=== PATIENT | female | born 1960 | race African-American/Black ===

== ENCOUNTER 2018-04-26 18:38 | Emergency (ER) | payer MEDICARE, MEDICAID ==
[2018-04-26] MEDS ORDERED: IPRATROPIUM/ALBUTEROL 0.5-2.5 MG/3 ML AMPUL NEB ONE (20:16)
--- NOTE | 2018-04-26 20:17 | ER Document Report ---
ED Medical Screen (RME) - General Chief Complaint: Nausea/Vomiting/Diarrhea Stated Complaint: COUGH Time Seen by Provider: 04/26/18 20:13 Notes: 57 years old female with a history of sarcoidosis, recently diagnosed with strep throat, presents today with fever chills general body aches and pain and cough. TRAVEL OUTSIDE OF THE [place] IN LAST 30 DAYS: No - Related Data Allergies/Adverse Reactions: ciprofloxacin [From Cipro] Allergy (Verified 04/26/18 18:41) ciprofloxacin HCl [From Cipro] Allergy (Verified 04/26/18 18:41) Past Medical History - Past Medical History Cardiac Medical History: Reports: Hx Heart Attack - 2001 Pulmonary Medical History: Reports: Hx COPD Neurological Medical History: Reports: Hx Seizures Psychiatric Medical History: Reports: Hx Bipolar Disorder - Immunizations Hx Diphtheria, Pertussis, Tetanus Vaccination: Yes Physical Exam - Vital signs Vitals: Temp Pulse Resp BP Pulse Ox 98.6 F 103 H 18 144/83 H 94 04/26/18 19:09 04/26/18 19:09 04/26/18 19:09 04/26/18 19:09 04/26/18 19:09 Course - Vital Signs Vital signs: Temp Pulse Resp BP Pulse Ox 98.6 F 103 H 18 144/83 H 94 04/26/18 19:09 04/26/18 19:09 04/26/18 19:09 04/26/18 19:09 04/26/18 19:09 Doctor's Discharge - Discharge Referrals: AMALIA BENAVIDEZ MD [Primary Care Provider] - Follow up as needed
[2018-04-26 21:01] LABS: APPEARANCE,URINE CLEAR; BILIRUBIN,URINE NEGATIVE (NEGATIVE); COLOR,URINE STRAW; GLUCOSE, URINE NEGATIVE (NEGATIVE); KETONES,URINE NEGATIVE (NEGATIVE); LEUKOCYTE ESTERASE,URINE NEGATIVE (NEGATIVE); NITRITE,URINE NEGATIVE (NEGATIVE); PROTEIN,URINE NEGATIVE (NEGATIVE); URINE SPECIFIC GRAVITY 1.006; UROBILINOGEN,URINE NEGATIVE mg/dL (<2.0)
[2018-04-26 21:04] LABS: A TYPE INFLUENZA AG NEGATIVE (NEGATIVE); B INFLUENZA AG NEGATIVE (NEGATIVE)
--- NOTE | 2018-04-26 21:09 | RADIOLOGY REPORT (SQ) ---
EXAM DESCRIPTION: XR CHEST 1 VIEW COMPLETED DATE/TME: 04/26/2018 20:16 CLINICAL HISTORY: 57 years, Female, Cough COMPARISON: None. NUMBER OF VIEWS: 1 TECHNIQUE: Portable chest LIMITATIONS: None. FINDINGS: Heart size is normal. Electronic device projects over the left heart border. Lungs are clear. No pneumothorax IMPRESSION: No acute cardiopulmonary process copyright 2010 [facility]- All Rights Reserved
[2018-04-26 21:21] LABS: ABSOLUTE BASOPHILS # (AUTO) 0.1 10^3/uL (0.0-0.2); ABSOLUTE EOSINOPHILS # (AUTO) 0.2 10^3/uL (0.0-0.6); ABSOLUTE LYMPHOCYTES (AUTO) 4.4 10^3/uL (0.5-4.7); ABSOLUTE MONOCYTES (AUTO) 0.7 10^3/uL (0.1-1.4); ABSOLUTE NEUT (AUTO) 2.6 10^3/uL (1.7-8.2); HEMOGLOBIN 13.8 g/dL (12.0-15.5); LYMPHOCYTES % (AUTO) 56.1 % (13-45); MEAN CORPUSCULAR HEMOGLOBIN 29.3 pg (27.0-33.4); MEAN CORPUSCULAR HGB CONC 32.8 g/dL (32.0-36.0); MEAN CORPUSCULAR VOLUME 89 fl (80-97); MONOCYTES % (AUTO) 8.4 % (3-13); PLATELET COUNT 404 10^3/uL (150-450); RED BLOOD COUNT 4.72 10^6/uL (3.72-5.28); RED CELL DISTRIBUTION WIDTH 15.2 % (11.5-14.0); SEGMENTED NEUTROPHILS % (AUTO) 32.5 % (42-78); TOTAL CELLS COUNTED % (AUTO) 100 %; WHITE BLOOD COUNT 7.9 10^3/uL (4.0-10.5)
[2018-04-26 22:17] LABS: ALANINE AMINOTRANSFERASE 7 U/L (9-52); ALBUMIN 5.3 g/dL (3.5-5.0); ALKALINE PHOSPHATASE 57 U/L (38-126); ANION GAP 14 (5-19); ASPARTATE AMINO TRANSFERASE 20 U/L (14-36); BILIRUBIN,DIRECT 0.4 mg/dL (0.0-0.4); BILIRUBIN,TOTAL 0.5 mg/dL (0.2-1.3); BLOOD UREA NITROGEN 6 mg/dL (7-20); CALCIUM 9.9 mg/dL (8.4-10.2); CARBON DIOXIDE 27 mmol/L (22-30); CHLORIDE 98 mmol/L (98-107); GLUCOSE 111 mg/dL (75-110); SODIUM 138.9 mmol/L (137-145)
[2018-04-26] MEDS ORDERED: PREDNISONE 20 MG TABLET PO ONE (22:40)
--- NOTE | 2018-04-26 22:45 | ER Document Report ---
ED General - General TRAVEL OUTSIDE OF THE [place] IN LAST 30 DAYS: No <DORIS CARRILLO - Last Filed: 04/27/18 01:46> <MERA HINES - Last Filed: 04/29/18 08:34> - General Chief Complaint: Cold Symptoms Stated Complaint: COUGH Time Seen by Provider: 04/26/18 20:13 Notes: Patient is a 57-year-old female presents to the emergency department complaining of generalized sore throat, body aches, chills, cough, congestion. Patient states on Tuesday she was to her primary care provider who diagnosed her with strep throat and started her on penicillin. Patient states she has had increased cough for the last couple of days which is why she presents to the emergency room. Patient denies any nausea, vomiting, diarrhea, recent fevers. Past medical history: Sarcoidosis, myocardial infarction, CVA, hypertension Medications: Gabapentin, Dilaudid, clonidine, Seroquel, Xanax Allergies: Cipro Patient has no residual weakness from her CVA. (DORIS CARRILLO) - Related Data Allergies/Adverse Reactions: ciprofloxacin [From Cipro] Allergy (Verified 04/26/18 18:41) ciprofloxacin HCl [From Cipro] Allergy (Verified 04/26/18 18:41) Past Medical History - General Information source: Patient - Social History Smoking Status: Never Smoker Family History: Reviewed & Not Pertinent Patient has suicidal ideation: No Patient has homicidal ideation: No - Past Medical History Cardiac Medical History: Reports: Hx Heart Attack - 2001 Pulmonary Medical History: Reports: Hx COPD Neurological Medical History: Reports: Hx Seizures Renal/ Medical History: Denies: Hx Peritoneal Dialysis Psychiatric Medical History: Reports: Hx Bipolar Disorder Past Surgical History: Reports: Hx Cholecystectomy, Hx Hysterectomy - Immunizations Hx Diphtheria, Pertussis, Tetanus Vaccination: Yes <DORIS CARRILLO - Last Filed: 04/27/18 01:46> Review of Systems - Review of Systems Constitutional: See HPI EENT: See HPI Cardiovascular: See HPI Respiratory: See HPI Gastrointestinal: No symptoms reported Genitourinary: No symptoms reported Female Genitourinary: No symptoms reported Musculoskeletal: No symptoms reported Skin: No symptoms reported Hematologic/Lymphatic: No symptoms reported Neurological/Psychological: No symptoms reported <DORIS CARRILLO - Last Filed: 04/27/18 01:46> Physical Exam <DORIS CARRILLO - Last Filed: 04/27/18 01:46> - Vital signs Vitals: Temp Pulse Resp BP Pulse Ox 98.6 F 103 H 18 144/83 H 94 04/26/18 19:09 04/26/18 19:09 04/26/18 19:09 04/26/18 19:09 04/26/18 19:09 - Notes Notes: GENERAL: Alert, interacts well. No acute distress. HEAD: Normocephalic, atraumatic. No frontal or maxillary sinus noted EYES: Pupils equal, round, and reactive to light. Extraocular movements intact. ENT: Oral mucosa moist, tongue midline. Nares patent, swollen turbinates bilaterally, TM's intact, nonerythematous, nonbulging. Pharynx erythematous, tonsils +2 bilaterally with no exudate noted. NECK: Full range of motion. Supple. Trachea midline. No lymphadenopathy appreciated LUNGS: Clear to auscultation bilaterally, no wheezes, rales, or rhonchi. No respiratory distress. HEART: Regular rate and rhythm. No murmur ABDOMEN: Soft, non-tender. Non-distended. Bowel sounds present in all 4 quadrants. EXTREMITIES: Moves all 4 extremities spontaneously. No edema, normal radial and dorsalis pedis pulses bilaterally. No cyanosis. 5 out of 5 strength all 4 extremities BACK: no cervical, thoracic, lumbar midline tenderness. No saddle anesthesia, normal distal neurovascular exam. NEUROLOGICAL: Alert and oriented x3. Normal speech. cranial nerves II through XII grossly intact PSYCH: Normal affect, normal mood. SKIN: Warm, dry, normal turgor. No rashes or lesions noted. (DORIS CARRILLO) Course - Laboratory Result Diagrams: 04/26/18 20:55 04/26/18 20:55 <DORIS CARRILLO - Last Filed: 04/27/18 01:46> - Laboratory Result Diagrams: 04/26/18 20:55 04/26/18 20:55 <MERA HINES - Last Filed: 04/29/18 08:34> - Re-evaluation Re-evalutation: 04/26/18 22:43 Patient's labs show no signs of leukocytosis, no signs of anemia, no signs of urinary tract infection, no signs of dehydration, her flu test was negative and her chest x-ray shows no signs of pneumonia, pneumothorax, rib fractures. RME provider did give the patient a DuoNeb treatment which she solids helped her breathing. Patient's lung sounds are clear and equal in all patterson now, RME provider did not document her lung sounds sounded like initially but I am going to send her home with albuterol and steroids for bronchitis. Discussed continuing antibiotics prescribed by primary care provider, returning to the emergency room for any other concerning symptoms. Patient appears well- hydrated at this time in no obvious distress. (DORIS CARRILLO) - Vital Signs Vital signs: Temp Pulse Resp BP Pulse Ox 98.0 F 94 20 120/80 95 04/26/18 23:17 04/26/18 23:17 04/26/18 23:17 04/26/18 23:17 04/26/18 23:17 - Laboratory Laboratory results interpreted by me: 04/26/18 04/26/18 20:55 20:55 RDW 15.2 H Seg Neutrophils % 32.5 L Lymphocytes % 56.1 H BUN 6 L Glucose 111 H ALT 7 L Total Protein 9.0 H Albumin 5.3 H Discharge <DORIS CARRILLO - Last Filed: 04/27/18 01:46> <MERA HINES - Last Filed: 04/29/18 08:34> - Discharge Clinical Impression: Bronchitis Upper respiratory infection Qualifiers: URI type: unspecified viral URI Qualified Code(s): J06.9 - Acute upper respiratory infection, unspecified Condition: Stable Disposition: HOME, SELF-CARE Instructions: Bronchitis With Bronchospasm (Wheezing) ([facility]), Upper Respiratory Illness ([facility]) Additional Instructions: As we discussed you have been seen and treated in the emergency department for an upper respiratory infection, and wheezing. Please continue taking antibiotics as prescribed. Please also take medications from the emergency room as prescribed. Please return to the emergency room for any other concerning symptoms and follow-up with your primary care provider in 24 hours. Prescriptions: Benzonatate [Tessalon Perles 100 mg Capsule] 100 mg PO Q8HP PRN #40 capsule PRN Reason: RX: Albuterol Sulfate [Proair HFA Inhalation Aerosol 8.5 gm MDI] 2 puff IH Q4H PRN #1 mdi PRN Reason: Mometasone Furoate [Nasonex] 1 spray NS Q12 #1 spray.pump RX: Prednisone [Deltasone 20 mg Tablet] 3 tab PO DAILY 5 Days tablet Referrals: AMALIA BENAVIDEZ MD [Primary Care Provider] - Follow up as needed Cosign for MLP Consult
[2018-04-26 23:18] VITALS: BP 120/80
== END 2018-04-26 23:20 | disposition home or self-care (01) ==
LOC: ER 18:38
DX: J40 Bronchitis, not specified as acute or chronic (principal); J44.9 Chronic obstructive pulmonary disease, unspecified; R05 Cough; J02.0 Streptococcal pharyngitis; R68.83 Chills (without fever); I10 Essential (primary) hypertension; F31.9 Bipolar disorder, unspecified; Z79.899 Other long term (current) drug therapy; Z79.891 Long term (current) use of opiate analgesic; Z88.1 Allergy status to other antibiotic agents
CPT/HCPCS: 94640; 99283; 36415; 85025; 80053; 81001; 87804; 71045; A9270 ×2; J7512; J7620

== ENCOUNTER 2018-05-08 02:42 | Emergency (ER) | payer MEDICARE, MEDICAID ==
[2018-05-08] MEDS ORDERED: ASPIRIN 81 MG TABLET, CHEWABLE PO ONE (03:03)
[2018-05-08] MEDS ORDERED: IPRATROPIUM/ALBUTEROL 0.5-2.5 MG/3 ML AMPUL NEB ONE ×2 (03:04→06:17)
--- NOTE | 2018-05-08 03:04 | ER Document Report ---
ED General - General Chief Complaint: Chest Pain > 30 Stated Complaint: CHEST PAIN Time Seen by Provider: 05/08/18 02:51 Primary Care Provider: AMALIA BENAVIDEZ MD [Primary Care Provider] - Follow up as needed Mode of Arrival: Ambulatory Information source: Patient Notes: 57-year-old female with COPD, sarcoidosis, coronary artery disease, previous CVA, seizure history, recent diagnosis of pneumonia presents with complaint of chest pain and abdominal pain. Patient states that she has recently completed a course of Augmentin for strep throat and pneumonia. Patient states that she has felt drained, fatigued. Patient has had one episode of vomiting. She reports i ntermittent episodes of diarrhea. Patient receive nitro, aspirin and Zofran prior to arrival. She states that her pain improved after vomiting. TRAVEL OUTSIDE OF THE [place] IN LAST 30 DAYS: No - HPI Onset: Other Onset/Duration: Gradual Quality of pain: Achy, Pressure Severity: Mild Pain Level: 2 Associated symptoms: Chest pain, Nausea, Vomiting - Abdominal pain, Other Exacerbated by: Denies Relieved by: Denies Similar symptoms previously: Yes Recently seen / treated by doctor: Yes - Related Data Allergies/Adverse Reactions: ciprofloxacin [From Cipro] Allergy (Verified 04/26/18 18:41) ciprofloxacin HCl [From Cipro] Allergy (Verified 04/26/18 18:41) Past Medical History - General Information source: Patient, [facility] Records - Social History Smoking Status: Never Smoker Frequency of alcohol use: None Drug Abuse: None Lives with: Family Family History: Reviewed & Not Pertinent - Past Medical History Cardiac Medical History: Reports: Hx Heart Attack - 2001 Pulmonary Medical History: Reports: Hx COPD Neurological Medical History: Reports: Hx Seizures Renal/ Medical History: Denies: Hx Peritoneal Dialysis Psychiatric Medical History: Reports: Hx Bipolar Disorder Past Surgical History: Reports: Hx Cholecystectomy, Hx Hysterectomy - Immunizations Hx Diphtheria, Pertussis, Tetanus Vaccination: Yes Review of Systems - Review of Systems Constitutional: Fever, Malaise, Weakness EENT: denies: Blurred vision Cardiovascular: Chest pain. denies: Dizziness Respiratory: Cough, Short of breath, Wheezing Gastrointestinal: Abdominal pain, Diarrhea Female Genitourinary: No symptoms reported Musculoskeletal: No symptoms reported Skin: No symptoms reported Hematologic/Lymphatic: No symptoms reported Neurological/Psychological: denies: Confusion, Headaches -: Yes All other systems reviewed and negative Physical Exam - Vital signs Vitals: Resp BP Pulse Ox 20 133/81 H 89 L 05/08/18 02:47 05/08/18 02:47 05/08/18 02:47 - Notes Notes: PHYSICAL EXAMINATION: GENERAL: Well-appearing, well-nourished and in no acute distress. HEAD: Atraumatic, normocephalic. EYES: Pupils equal round and reactive to light, extraocular movements intact, conjunctiva are normal. ENT: Nares patent, oropharynx clear without exudates. Moist mucous membranes. NECK: Normal range of motion, supple without lymphadenopathy LUNGS: Diminished breath sounds bilaterally. HEART: Regular rate and rhythm without murmurs ABDOMEN: Soft, nontender, nondistended abdomen. No guarding, no rebound. No masses appreciated. Female : deferred Musculoskeletal: Normal range of motion, no pitting or edema. No cyanosis. NEUROLOGICAL: Cranial nerves grossly intact. Normal speech, normal gait. Normal sensory, motor exams PSYCH: Normal mood, normal affect. SKIN: Warm, Dry, normal turgor, no rashes or lesions noted. Course - Re-evaluation Re-evalutation: 05/10/18 01:23 Laboratory 05/08/18 05/08/18 05/08/18 04:25 04:25 04:25 WBC 6.7 RBC 4.00 Hgb 11.5 L Hct 35.0 L MCV 88 MCH 28.7 MCHC 32.8 RDW 15.0 H Plt Count 272 Seg Neutrophils % 53.6 Lymphocytes % 33.6 Monocytes % 9.1 Eosinophils % 2.4 Basophils % 1.3 Absolute Neutrophils 3.6 Absolute Lymphocytes 2.3 Absolute Monocytes 0.6 Absolute Eosinophils 0.2 Absolute Basophils 0.1 PT INR Sodium 141.9 Potassium 3.3 L Chloride 113 H Carbon Dioxide 23 Anion Gap 6 BUN 5 L Creatinine 0.47 L Est GFR ( Amer) > 60 Est GFR (Non-Af Amer) > 60 Glucose 106 Calcium 7.0 L* Magnesium Total Bilirubin 0.3 Direct Bilirubin 0.3 Neonat Total Bilirubin Not Reportable Neonat Direct Bilirubin Not Reportable Neonat Indirect Bili Not Reportable AST 42 H ALT 28 Alkaline Phosphatase 45 Creatine Kinase 73 CK-MB (CK-2) 0.37 Troponin I < 0.012 Total Protein 5.5 L Albumin 3.0 L Lipase 35.8 05/08/18 05/08/18 05/08/18 04:25 05:53 05:53 WBC RBC Hgb Hct MCV MCH MCHC RDW Plt Count Seg Neutrophils % Lymphocytes % Monocytes % Eosinophils % Basophils % Absolute Neutrophils Absolute Lymphocytes Absolute Monocytes Absolute Eosinophils Absolute Basophils PT 13.3 INR 0.96 Sodium Potassium Chloride Carbon Dioxide Anion Gap BUN Creatinine Est GFR ( Amer) Est GFR (Non-Af Amer) Glucose Calcium Magnesium 1.8 Total Bilirubin Direct Bilirubin Neonat Total Bilirubin Neonat Direct Bilirubin Neonat Indirect Bili AST ALT Alkaline Phosphatase Creatine Kinase CK-MB (CK-2) Troponin I < 0.012 Total Protein Albumin Lipase Abdomen/Pelvis CT 05/08/18 03:03 IMPRESSION: Small bilateral lower lobar pneumonia/atelectasis. Chest X-Ray 05/08/18 03:04 IMPRESSION: Small bilateral lower lobar pneumonia/atelectasis. Temp Pulse Resp BP Pulse Ox 98.9 F 13 139/91 H 100 05/08/18 07:02 05/08/18 07:02 05/08/18 07:02 05/08/18 07:02 57-year-old female presents with complaint of weakness, chest pain, cough, abdominal pain. Vital signs reviewed and within normal limits upon arrival. Patient does not appear toxic she does appear ill. She is mildly dehydrated. Patient did receive breathing treatments, IV fluids, ceftriaxone during her ED course. CBC is without leukocytosis or anemia. CMP shows hypocalcemia. This was replenished.. Cardiac enzymes including delta troponin within normal limits. Patient is not hypoxic, she is not requiring oxygen supplementation. She was treated with Augmentin recently for strep throat but this is an inappropriate antibiotic for community-acquired pneumonia. She has had no recent hospitalizations. She is tolerating p.o. Patient will be discharged home with a course of doxycycline. Patient was evaluated and treated as appropriate for the patient's presenting symptoms and complaint, with consideration of any critical or life threatening conditions that may be associated with their obtained history and exam as noted above. All results were discussed with patient and her family members at the bedside. patient provided the opportunity to ask questions, and express concerns. Patient was educated on treatments based on their presumed diagnosis as noted above. At this time we w ill discharge the patient with return precautions and follow-up recommendations. Verbal discharge instructions given a the bedside. Medication warnings reviewed. Patient is in agreement with this plan and has verbalized understanding of return precautions. After careful consideration I feel that that patient can be safely discharged from the emergency department, they were advised to followup with a primary care physician in 2-3 days. Dictation on this chart was performed using voice recognition software and may result in unintended grammatical, spelling, syntax or errors. - Vital Signs Vital signs: Temp Pulse Resp BP Pulse Ox 98.9 F 13 139/91 H 100 05/08/18 07:02 05/08/18 07:02 05/08/18 07:02 05/08/18 07:02 - Laboratory Result Diagrams: 05/08/18 04:25 05/08/18 04:25 Laboratory results interpreted by me: 05/08/18 05/08/18 04:25 04:25 Hgb 11.5 L Hct 35.0 L RDW 15.0 H Potassium 3.3 L Chloride 113 H BUN 5 L Creatinine 0.47 L Calcium 7.0 L* AST 42 H Total Protein 5.5 L Albumin 3.0 L - Diagnostic Test Radiology reviewed: Image reviewed - EKG Interpretation by Me EKG shows normal: Sinus rhythm Rate: Normal Rhythm: NSR When compared to previous EKG there are: No significant change Discharge - Discharge Clinical Impression: Hypocalcemia Pneumonia Qualifiers: Pneumonia type: due to unspecified organism Laterality: bilateral Lung location: unspecified part of lung Qualified Code(s): J18.9 - Pneumonia, unspecified organism Abdominal pain Qualifiers: Abdominal location: periumbilical Qualified Code(s): R10.33 - Periumbilical pain Nausea & vomiting Qualifiers: Vomiting type: unspecified Vomiting Intractability: non-intractable Qualified Code(s): R11.2 - Nausea with vomiting, unspecified Condition: Good Disposition: HOME, SELF-CARE Instructions: Abdominal Pain ([facility]), Intravenous (IV) Fluids ([facility]), Pneumonia ([facility]), Vomiting ([facility]) Additional Instructions: You have been diagnosed with a pneumonia. It is very important that you take all of your antibiotics until they are gone even if you are feeling better. Please return to the emergency department immediately if you began having worsening shortness of breath, become confused, have worsening pain, pass out, have persistent vomiting that prevents you from being able to drink fluids for more than 12 hours, or have any other symptoms that are worrisome to you. Please follow-up with your primary care doctor in the next 1-2 days. Prescriptions: Guaifenesin/Codeine Phos [Robitussin-AC Syrup 59 ml] 10 ml PO QHS #75 ml Acetaminophen/Chlorpheniramine [Coricidin Cold & Flu Tablet] 1 tab PO ASDIR PRN #1 pkg PRN Reason: RX: Doxycycline Hyclate 100 mg PO BID #14 capsule Forms: Elevated Blood Pressure Referrals: AMALIA BENAVIDEZ MD [Primary Care Provider] - Follow up as needed
[2018-05-08] MEDS ORDERED: FAMOTIDINE INJ/PF 20 MG/2 ML SDV IV ONE (03:16)
[2018-05-08] MEDS ORDERED: NORMAL SALINE 500 ML IV ONE (03:16)
[2018-05-08] MEDS ORDERED: MORPHINE SULFATE 10 MG/ML INJ IV ONE (03:48)
[2018-05-08 04:39] LABS: ABSOLUTE BASOPHILS # (AUTO) 0.1 10^3/uL (0.0-0.2); ABSOLUTE EOSINOPHILS # (AUTO) 0.2 10^3/uL (0.0-0.6); ABSOLUTE LYMPHOCYTES (AUTO) 2.3 10^3/uL (0.5-4.7); ABSOLUTE MONOCYTES (AUTO) 0.6 10^3/uL (0.1-1.4); ABSOLUTE NEUT (AUTO) 3.6 10^3/uL (1.7-8.2); BASOPHILS % (AUTO) 1.3 % (0-2); EOSINOPHILS % (AUTO) 2.4 % (0-6); HEMOGLOBIN 11.5 g/dL (12.0-15.5); LYMPHOCYTES % (AUTO) 33.6 % (13-45); MEAN CORPUSCULAR HEMOGLOBIN 28.7 pg (27.0-33.4); MEAN CORPUSCULAR HGB CONC 32.8 g/dL (32.0-36.0); MEAN CORPUSCULAR VOLUME 88 fl (80-97); MONOCYTES % (AUTO) 9.1 % (3-13); PLATELET COUNT 272 10^3/uL (150-450); SEGMENTED NEUTROPHILS % (AUTO) 53.6 % (42-78); TOTAL CELLS COUNTED % (AUTO) 100 %; WHITE BLOOD COUNT 6.7 10^3/uL (4.0-10.5)
[2018-05-08 04:52] LABS: ALANINE AMINOTRANSFERASE 28 U/L (9-52); ALKALINE PHOSPHATASE 45 U/L (38-126); ASPARTATE AMINO TRANSFERASE 42 U/L (14-36); BILIRUBIN,DIRECT 0.3 mg/dL (0.0-0.4); BILIRUBIN,TOTAL 0.3 mg/dL (0.2-1.3); BLOOD UREA NITROGEN 5 mg/dL (7-20); CREATINE KINASE 73 U/L (30-135); GLUCOSE 106 mg/dL (75-110); LIPASE 35.8 U/L (23-300); POTASSIUM 3.3 mmol/L (3.6-5.0); TOTAL PROTEIN 5.5 g/dL (6.3-8.2)
[2018-05-08 04:57] LABS: ANION GAP 6 (5-19); CARBON DIOXIDE 23 mmol/L (22-30); CHLORIDE 113 mmol/L (98-107); SODIUM 141.9 mmol/L (137-145)
[2018-05-08] MEDS ORDERED: CALCIUM GLUCONATE 1000 MG/10 ML INJ IV ONE (05:03)
[2018-05-08 05:04] LABS: CREATINE KINASE MB 0.37 ng/mL (<4.55)
[2018-05-08 05:09] LABS: TROPONIN I < 0.012 ng/mL
--- NOTE | 2018-05-08 05:44 | RADIOLOGY REPORT (SQ) ---
EXAM DESCRIPTION: CT ABDOMEN PELVIS WITH IV CONTRAST COMPLETED DATE/TME: 05/08/2018 03:03 CLINICAL HISTORY: 57 years Female, abd pain Comparison: None. Technique: IV contrast. Coronal and sagittal reformat. This exam was performed according to our departmental dose-optimization program, which includes automated exposure control, adjustment of the mA and/or kV according to patient size and/or use of iterative reconstruction technique. [facility]: Dose Right [facility]: CareDose [facility]: Dose Right [facility]: Teradose 4D [facility]: zerved LIMITATIONS: None Findings: Small streaky opacity of bilateral lower lobes partially imaged. No ascites. Normal appendix. Cholecystectomy. No pneumoperitoneum. No bowel obstruction. No hydronephrosis or hydroureter. No renal/ureteral stone. No evidence of abdominal aortic aneurysm. Inferior thorax, liver, gallbladder, pancreas, spleen, adrenals, renal system, gastrointestinal tract, pelvic organs, lymphatics, vasculature, and musculoskeleton appear otherwise unremarkable. IMPRESSION: Small bilateral lower lobar pneumonia/atelectasis.
--- NOTE | 2018-05-08 05:46 | RADIOLOGY REPORT (SQ) ---
EXAM DESCRIPTION: XR CHEST 2 VIEWS COMPLETED DATE/TME: 05/08/2018 03:04 CLINICAL HISTORY: 57 years Female, chest pain COMPARISON: April 26, 2018 NUMBER OF VIEWS/TECHNIQUE: 2, Frontal, Lateral FINDINGS: Adequate lung volume, medial small streaky opacity of bilateral lower lung patterson, normal cardiac silhouette, and intact bony thorax. IMPRESSION: Small bilateral lower lobar pneumonia/atelectasis.
[2018-05-08] MEDS ORDERED: CEFTRIAXONE 1 GM/D5W RTU 1 GM/50 ML RTUPB IV ONE (05:52)
[2018-05-08 06:11] LABS: INTERNATIONAL RATION (INR) 0.96; PROTHROMBIN TIME 13.3 SEC (11.4-15.4)
[2018-05-08] MEDS ORDERED: ALBUTEROL SULFATE HFA (90 MCG/PUFF) 8 GM MDI (1 MDI/ER DISP) IH PRN (06:14)
--- NOTE | 2018-05-08 07:02 | EKG REPORT ---
SEVERITY:- ABNORMAL ECG - SINUS RHYTHM PROBABLE INFERIOR INFARCT, AGE INDETERMINATE CONSIDER ANTERIOR INFARCT NONSPECIFIC T ChANGES : Confirmed by: Rani Hilliard 08-May-2018 07:01:58
[2018-05-08 07:14] VITALS: BP 139/91
== END 2018-05-08 07:14 | disposition home or self-care (01) ==
LOC: ER 02:42
DX: J18.9 Pneumonia, unspecified organism (principal); E83.51 Hypocalcemia; R10.33 Periumbilical pain; R11.2 Nausea with vomiting, unspecified; R07.9 Chest pain, unspecified; R10.9 Unspecified abdominal pain; R53.83 Other fatigue; R19.7 Diarrhea, unspecified; R05 Cough; R06.02 Shortness of breath; R06.2 Wheezing; R53.1 Weakness; J44.9 Chronic obstructive pulmonary disease, unspecified; I25.10 Atherosclerotic heart disease of native coronary artery without angina pectoris; I25.2 Old myocardial infarction
CPT/HCPCS: 93005; 94640 ×2; 99285; 96361; 96375; 96365; 36415; 82553; 82550; 83690; 83735; 85025; 85610; 80053; 84484; 71046; 74177; 93010; J0610; J2270; J7040; S0028; J0696; J3490; A9270; J7620